=== PATIENT | female | born 1990 | race Caucasian/White ===

== ENCOUNTER 2024-08-17 14:32 | Emergency (ER) | payer OTHER, SELFPAY ==
[2024-08-17] VITALS (7 sets, daily range): BP systolic 112–122; BP diastolic 53–80; PULSE 73–97; RESP 18–20; TEMP 36.7–36.9; O2SAT 98–100; BMI 31.9
--- NOTE | ~2024-08-17 | CT_ITS ---
CLINICAL HISTORY: right side weakness and nubness CT head without contrast Comparison: None provided Findings: No intra-axial mass, midline shift, hydrocephalus, or acute hemorrhage. No significant atrophy-like change or white matter disease. The visualized paranasal sinuses and mastoid air cells are normal. The orbits are within normal limits. No skull fracture. IMPRESSION: 1. No acute intracranial findings. This document has been electronically signed by: rJ Montano MD on 08/17/2024 20:57:56
--- NOTE | ~2024-08-17 | MR_ITS ---
CLINICAL HISTORY: right side numbness MR Brain without gadolinium Comparison: CT head 08/17/2024 Findings: No restricted diffusion. No intra-axial mass or hemorrhage. No midline shift. No hydrocephalus. Vascular flow voids are intact. Orbital contents are unremarkable. The sinuses and mastoid air cells are clear. No focal bone lesion. IMPRESSION: Unremarkable brain MRI. This document has been electronically signed by: Jr Montano MD on 08/17/2024 21:01:01
--- NOTE | 2024-08-17 07:18 | ECG_ITS ---
Test Reason : repeat Blood Pressure : */* mmHG Vent. Rate : 83 BPM Atrial Rate : 83 BPM P-R Int : 146 ms QRS Dur : 88 ms QT Int : 364 ms P-R-T Axes : 58 66 10 degrees QTcB Int : 427 ms Normal sinus rhythm with sinus arrhythmia Possible Left atrial enlargement Borderline ECG When compared with ECG of 17-Aug-2024 16:19, Nonspecific T wave abnormality no longer evident in Anterolateral leads Referred By: Su Martinez Electronically Signed By: SELWYN ZAPIEN
--- NOTE | 2024-08-17 15:34 | ED.GENADULT ---
HPI - General Adult General Chief complaint: General Medical Stated complaint: NUMBNESS R LEG Time Seen by Provider: 08/17/24 18:29 Source: patient and family (Spouse) Mode of arrival: ambulatory Limitations: no limitations History of Present Illness ED Provider: DR. Rapp HPI narrative: 34-year-old female came in for evaluation of right side started after taking rgey-bzn-ssqyfsu Tylenol combined with Motrin for migraine that patient felt in the morning, shortly after patient started to have right side numbness that triggered the patient's anxiety patient started to cry and become anxious, patient came in for further evaluation the numbness while patient waiting to be seen her symptoms resolved, declined using any hormonal replacement therapy, no contraceptive pills. No history of stroke or family history of stroke. No history of high blood pressure or diabetes. Related Data Allergies Allergy/AdvReac Type Severity Reaction Status Date / Time sulfamethoxazole (From Allergy Unknown RASH Verified 08/17/24 15:35 BACTRIM) trimethoprim (From BACTRIM) Allergy Unknown RASH Verified 08/17/24 15:35 Review of Systems Review of Systems: All other systems are reviewed and are negative Constitutional: Reports as per HPI and Reports no additional constitutional complaints Eyes: Reports as per HPI and Reports no additional eye complaints Reports system reviewed and no additional complaints, except as documented Cardiovascular: Reports as per HPI and Reports no additional cardiovascular complaints Respiratory: Reports as per HPI and Reports no additional respiratory complaints Gastrointestinal: Reports as per HPI and Reports no additional gastrointestinal complaints Genitourinary: Reports no additional female genitourinary complaints Musculoskeletal: Reports no additional musculoskeletal complaints Skin/Breast: Reports system reviewed and no additional complaints, except as docu Psychiatric: Reports no additional psychiatric complaints Endocrine: Reports no additional endocrine complaints Hematologic/Lymphatic: Reports no additional hematologic/lymphatic complaints Allergic/Immunologic: Reports no additional allergic/immunologic complaints Reports system reviewed and no additional complaints, except as documented and Reports Abnormal speech present [facility] Social History Social History Alcohol intake: never Smoked in Last 30 Days: No Substance Use Type: Marijuana Substance Use Frequency: Occasionally Advance Directives: No Advance Directives Information Provided: No Physical Exam ED Vital Signs: Vital Signs - 24 hr 08/17/24 15:33 08/17/24 17:55 08/17/24 17:56 Temperature 98.4 F Pulse Rate 75 83 73 Respiratory Rate 18 Blood Pressure 112/53 L 118/68 121/65 Pulse Oximetry 100 Oxygen Delivery Method Room Air 08/17/24 17:57 08/17/24 17:58 Temperature 98.1 F Pulse Rate 83 Respiratory Rate Blood Pressure 122/70 Pulse Oximetry 98 Oxygen Delivery Method Room Air BMI result Body Mass Index 31.9 Vital signs have been reviewed and appear to be correct. Blood pressure elevated. Heart rate normal. Respiratory rate normal. Temperature normal. Oxygen saturation normal. Appearance: Alert. Oriented X3. No acute distress. Head: Normal external exam. Normocephalic. Atraumatic. No Jessica signs noted. No raccoon eyes noted Eyes: PERRLA. EOMI. Conjunctiva and sclera normal. Eyelids normal. ENT: TM's Normal. Pharynx normal. Uvula midline. Moist mucous membranes. No trismus noted. No drooling noted. No muffled voice noted. Neck: Normal inspection. Neck supple. FROM. No adenopathy. Thyroid Normal. No meningeal signs. No neck mass noted. CVS: Normal heart rate and rhythm. Heart sound normal. No murmurs noted. Pulses normal throughout. Respiratory: No respiratory distress. Painless inspiration. Breath sounds normal. No wheezes/rales/rhonchi noted. Chest nontender. No accessory muscle usage noted or decreased air movement noted. Abdomen: Soft and nontender. Bowel sounds normal in all 4 quadrants. No distention noted. No organomegaly noted. No visible injury noted. Back: No CVA tenderness. Full range of motion noted. Skin: Skin warm and dry. Normal skin color. Normal skin turgor. No rashes/lesions/lacerations noted. Extremities: No lower extremity edema. Extremities exhibit normal range of motion. Extremities nontender. Neuro: Mental status: Normal attention, orientation, memory, and affect. Cranial nerves: Pupils are equal, round and reactive to light, EOMI, visual amador are fall, face is symmetric, facial sensations are normal. Motor examination normal muscle tone, strength to 4 extremities. DTR are +2, planter's are flexor. Sensory exam; normal coordination, no ataxia, gait stable. Cerebellar exam: Hbcbej-yk-bbjk and bvlw-bn-xyqp is normal. Extrapyramidal system: No tremors, no rigidity with normal facial expressions. Pronator drift not present NIH Stroke Scale Time: 18:42 Level of Consciousness: Alert Level of Consciousness Questions: Answers both questions correctly Level of Consciousness Commands: Performs both tasks correctly Best Gaze: Normal Visual: No visual loss Facial Palsy: Normal Motor Arm (Right): No drift Motor Arm (Left): No drift Motor Leg (Right): No drift Motor Leg (Left): No drift Limb Ataxia: Absent Sensory: Normal Best Language: No aphasia Dysarthia: Normal Extinction and Inattention: No abnormality Score: 0 Course Course Course Narrative: This is an RME: Additional HPI, ROS, PE not included below will be deferred to primary provider. RME assessment and note performed by: Su Martinez PA-C This is a 78-cpei-bas-female who presents to the ER with does report some tingling a complaint of numbness/tingling in her right arm and right leg after taking a tylenol/motrin combination tablet. Has taken this before, and did wake up with similar symptoms. Was taking this tablet for migraine. Patient becomes tearful, stating that she is not feeling well in triage. States she is just feeling off. She is neurologically intact. Plan: EKG, labs, further ER evaluation needed. Reevaluation(s) Reevaluation #1: 34-year-old female came in for evaluation after having right-sided body numbness after taking Tylenol combined with Motrin patient was instructed to avoid taking this medicine again, repeat neuro exam is within normal. Both CT/MRI of the brain are unremarkable for acute pathology will reassure the patient and discharge to follow-up with PCP. Time: 20:41 Medications Administered Discontinued Medications Generic Name Dose Route Start Last Admin Trade Name Rejiq PRN Reason Stop Dose Admin Diazepam 2 mg 08/17/24 19:14 08/17/24 19:32 Diazepam 2 Mg Tablet PO 08/17/24 19:15 2 mg ONCE ONE Administration Medical Decision Making Differential Diagnosis Differential Diagnoses: The differential diagnosis associated with the presentation includes (Hemorrhagic stroke, ischemic stroke, a reaction to medication, electrolyte derangement, severe anemia, anxiety.) Admission/Observation Consideration of admission/observation: Escalation of care including admission/observation considered Lab Data MDM Lab Attestation statement: I reviewed the patient's lab results. 08/17/24 16:29 08/17/24 16:29 Labs: Lab Results 08/17/24 Range/Units 16:29 WBC 9.4 (4.8-10.8) X10*3/uL RBC 4.49 (4.20-5.50) X10*6/uL Hgb 13.0 (12.0-16.0) g/dl Hct 38.7 (37.0-47.0) % MCV 86.2 (80.0-98.0) fL MCH 29.0 (27.0-33.0) pg MCHC 33.6 (31.0-35.0) g/dl RDW 12.8 (11.0-16.0) % Plt Count 234 (160-400) X10*3/uL MPV 10.0 (9.4-12.3) fL Immature Gran % (Auto) 0.2 (0.0-0.4) % Neut % (Auto) 80.0 H (45-73) % Lymph % (Auto) 13.6 L (20-40) % Pima % (Auto) 5.3 (2-11) % Eos % (Auto) 0.4 (0-4) % Baso % (Auto) 0.5 (0-2) % Lymph # (Auto) 1.3 (1.2-4.9) X10*3/uL Pima # (Auto) 0.5 (0.1-1.2) X10*3/uL Eos # (Auto) 0.0 (0.0-0.4) X10*3/uL Baso # (Auto) 0.1 (0.0-0.2) X10*3/uL Abs Immat Gran (auto) 0.02 (0.00-0.03) X10*3/uL Absolute Neuts (auto) 7.5 (2.0-8.3) x10*3/uL Absolute Nucleated RBC 0.000 (0.0-0.012) X10*3/uL Nucleated RBC % (auto) 0.0 (0.0-0.2) /100WBC Sodium 140 (135-145) mmol/L Potassium 3.7 (3.3-5.1) mmol/L Chloride 108 (96-108) mmol/L Carbon Dioxide 24 (22-29) mmol/L Anion Gap 12 (12-20) BUN 14 (9-16) mg/dL Creatinine 0.65 (0.5-1.4) mg/dL Estim Creat Clear Calc 134.1 Estimated GFR > 60 Random Glucose 101 (60-115) mg/dL Calcium 9.6 (8.4-10.2) mg/dL Magnesium 2.0 (1.6-2.6) mg/dL Total Bilirubin 0.4 (0.0-1.0) mg/dL Direct Bilirubin 0.1 (0.0-0.5) mg/dL AST 20 (5-31) U/L ALT 9 (0-31) U/L Alkaline Phosphatase 65 (39-117) U/L Troponin I High Sens < 2.7 (<3.5-17.0) ng/L Total Protein 7.5 (6.5-8.0) g/dL Albumin 4.9 (3.5-5.0) g/dL Beta HCG, Quant < 2 mIU/mL Influenza Type A (PCR) NEGATIVE (Negative) Influenza Type B (PCR) NEGATIVE (Negative) RSV RNA Qual (PCR) NEGATIVE (Negative) SARS-CoV-2 RNA (RT-PCR) NEGATIVE (Negative) Independent Interpretation I performed an independent interpretation of an: CT Scan (Head: No acute intra cranial pathology.) and MRI (Head: No acute intracranial pathology.) Radiology Impression Discussion of test interpretation with radiology: I have reviewed the radiologist's reading. Discharge Plan Discharge Clinical Impression: Anxiety, Medication side effect Patient Disposition: Home, Self-Care Instructions: Anxiety (ED) Additional Instructions: Avoid taking Tylenol combined with Motrin Referrals: Joanna Stanley MD [Primary Care Provider, Medical] Print Language: Congolese
--- NOTE | 2024-08-17 15:36 | ECG_ITS ---
Test Reason : numbness Blood Pressure : */* mmHG Vent. Rate : 80 BPM Atrial Rate : 80 BPM P-R Int : 140 ms QRS Dur : 88 ms QT Int : 364 ms P-R-T Axes : 57 59 -1 degrees QTcB Int : 419 ms Normal sinus rhythm with sinus arrhythmia Possible Left atrial enlargement Nonspecific T wave abnormality Abnormal ECG When compared with ECG of 24-Nov-2008 08:03, Nonspecific ST and T wave abnormality Present Referred By: Su Martinez Electronically Signed By: SELWYN ZAPIEN
--- NOTE | 2024-08-17 15:38 | PC.NURSE ---
iv removed. pt likely to leave. denies headache.
[2024-08-17 16:38] LABS: MANUAL DIFF FLAG NO
[2024-08-17 16:46] LABS: Basophils Absolute Auto 0.1 X10*3/uL (0.0-0.2); Basophils Percent Auto 0.5 % (0-2); Eosinophils Percent Auto 0.4 % (0-4); Hematocrit 38.7 % (37.0-47.0); Imm Gran Abs Auto 0.02 X10*3/uL (0.00-0.03); Imm Gran Pct Auto 0.2 % (0.0-0.4); Lymphocytes Absolute Auto 1.3 X10*3/uL (1.2-4.9); Lymphocytes Percent Auto 13.6 % (20-40); Mean Corpuscular HGB Conc 33.6 g/dl (31.0-35.0); Mean Corpuscular Volume 86.2 fL (80.0-98.0); Monocytes Absolute Auto 0.5 X10*3/uL (0.1-1.2); Monocytes Percent Auto 5.3 % (2-11); Neutrophils Absolute Auto 7.5 x10*3/uL (2.0-8.3); Platelet Count 234 X10*3/uL (160-400); Red Blood Count 4.49 X10*6/uL (4.20-5.50); Red Cell Distribution Width 12.8 % (11.0-16.0); White Blood Count 9.4 X10*3/uL (4.8-10.8)
[2024-08-17 17:02] LABS: Alanine Aminotransferase 9 U/L (0-31); Albumin Level 4.9 g/dL (3.5-5.0); Alkaline Phosphatase 65 U/L (39-117); Anion Gap 12 (12-20); Aspartate Amino Transferase 20 U/L (5-31); Bilirubin Direct 0.1 mg/dL (0.0-0.5); Bilirubin Total 0.4 mg/dL (0.0-1.0); Blood Urea Nitrogen 14 mg/dL (9-16); Calcium 9.6 mg/dL (8.4-10.2); Carbon Dioxide 24 mmol/L (22-29); Chloride 108 mmol/L (96-108); Creatinine Clr Calc Pharmacy 134.1; Estimated Glomerular Filt Rate > 60; Glucose Random 101 mg/dL (60-115); Potassium 3.7 mmol/L (3.3-5.1); Sodium 140 mmol/L (135-145); Total Protein 7.5 g/dL (6.5-8.0)
[2024-08-17 17:03] LABS: Troponin-I High Sensitivity < 2.7 ng/L (<3.5-17.0)
[2024-08-17 17:04] LABS: HCG Quantitative < 2 mIU/mL
[2024-08-17 17:23] LABS: Influenza A PCR NEGATIVE (Negative); Influenza B PCR NEGATIVE (Negative); Resp Syncy Virus RNA Qual PCR NEGATIVE (Negative); SARS COV2 PCR INHOUSE NEGATIVE (Negative)
--- OUTSIDE RECORDS SUMMARY | 2024-08-17 18:12 | XMS_ITS | Data Portability ---
Author Organization KAEL Mclean [facility] Address [address] [place] [address] Assessment No assessment recorded. Plan of Treatment Reminders Order Date Submit Date Provider Last Modified By Organization Details Last Modified Time Details Appointments None recorded. Lab rapid strep group A, throat 2022 023 [email or web address] _[facility], [address] [place] [address], [phone], 3 08:47:06 streptococc us group A, culture, throat 2022 023 [facility], [address] [place] [address], [place], [address], 3 10:06:22 rapid SARS CoV 2 Ag, QL IA, respiratory specimen 2022 023 [facility] _[facility], [address] [place] [address], [phone], 3 08:47:06 rapid strep group A, throat 2021 022 [email or web address] 1 _[facility], [address] [place] [address], [phone], 2 08:53:56 Referral None recorded. Procedures None recorded. Surgeries None recorded. Imaging None recorded. Medication Orders amoxicillin 875 mg tablet 2022 023 [facility]armacy #[id number], [address] [place], [address], 3 08:47:08 Allergy Relief (fluticason e) 50 mcg/actuati on nasal spray,suspe nsion 2022 023 [facility]/Pharmacy #[id number], [address] [facility], [place], [address], 3 08:47:08 Patient TargetsNo targets recorded. Patient Instructions Encounter Date Encounter Id Patient Instructions Last Modified By Organization Details Last Modified Time 02/07/2022 [id number] viral respirator y infection: care instructions Not available 02/07/2022 08:53:56 05/25/2022 [id number] Use over the counter medications for your sore throat. Basic lozenges (cough drops) or lozenges with an anesthetic (numbing agent) can be used as needed for quick results; look for the active ingredient, benzocaine, for numbing lozenges (like Cepacol Extra or Chloraseptic Max). Gargling with warm salt water can also relieve pain. Dissolve 1/4 to 1/2 teaspoon in 8-ounces of warm water; gargle and spit salt solution every hour, as needed. Sore throat pain can also be reduced by taking regular doses of acetaminophen (tylenol) or ibuprofen (Advil); if you are given a prescription of PREDNISONE, you may continue to take acetaminophen, but do not take ibuprofen or naprosyn. While this isn't quick, it can significantly reduce pain within an hour after taking. Please switch toothbrush after being on antibiotic for 24 hrs. You should follow-up with your PCP in days, or at any time if your condition does not improve or worsens. Any acute change should prompt a visit to the nearest Emergency Department. . [email or web address] Not available 05/25/2022 08:45:44 If you test positive for COVID-19, stay home for at least 5 days and isolate from others in your home. You are likely most infectious during these first 5 days. Wear a high-quality mask if you must be around others at home and in public. Do not go places where you are unable to wear a mask. For travel guidance, see CDC s Travel webpage. Do not travel. Stay home and separate from others as much as possible. Use a separate bathroom, if possible. Take steps to improve ventilation at home, if possible. Don t share personal household items, like cups, towels, and utensils. Monitor your symptoms. If you have an emergency warning sign (like trouble breathing), seek emergency medical care immediately. If you had symptoms and: Your symptoms are improving You may end isolation after day 5 if: You are fever-free for 24 hours (without the use of fever-reducing medication). Your symptoms are not improving Continue to isolate until: You are fever-free for 24 hours (without the use of fever-reducing medication). Your symptoms are improving. Regardless of when you end isolation Until at least day 11: Avoid being around people who are more likely to get very sick from COVID-19. Remember to wear a high-quality mask when indoors around others at home and in public. Do not go places where you are unable to wear a mask until you are able to discontinue masking (see below). For travel guidance, see [facility] s Travel webpage. [email or web address] Not available 05/25/2022 08:38:08 Reason for Referral None Reported. Results Created Date Observation Date Name Description Value Unit Range Abnormal Flag Note LastModifiedBy Organization Detail LastModifiedTime 02/08/20 22 02/07/2022 rapid strep group A, throa t Unknown Analyte Normal = Negati ve Not Available [facility] [address] [place], [address], 02/07/2022 08:27:56 02/08/20 22 02/07/2022 rapid strep group A, throa t Unknown Analyte negati ve Not Available [facility] [address] [place], [address], 02/07/2022 08:27:56 05/26/19 23 05/28/2022 BETA STREP GP A CULTU RE beta strep gp A culture NEGATI VE Refer ence Range : Negat edgard Not Available [facility] ([facility]) [address] [facility], [place], [address], 05/28/2022 10:06:22 05/26/19 23 05/25/2022 rapid SARS CoV 2 Ag, QL IA, respi rator y speci men Unknown Analyte Normal =Negat edgard Not Available [address] [place] [address], [phone], 05/25/2022 08:18:44 05/26/19 23 05/25/2022 rapid SARS CoV 2 Ag, QL IA, respi rator y speci men Unknown Analyte negati ve Not Available [address] [place] [address], [address], 05/25/2022 08:18:44 05/26/19 23 05/25/2022 rapid strep group A, throa t Unknown Analyte Normal = Negati ve Not Available [address] [place] [address], [address], 05/25/2022 08:18:52 05/26/1905/25/2022 rapid strep group A, throa t Unknown Analyte negati ve Not Available [address] [place] [address], [phone], 05/25/2022 08:18:52 Result Notes None recorded. Problems Name Problem SNOMED Code Status Onset Date Resolution Date Notes Provider Name and Address Organization Details Recorded Time No current problems or disabilit y 842832165 Active [facility] 3 08:16:41 [id number] Completed 202105/25/2022 Removal Reason: Gave 9 in april 2022 K[facility]EL [facility] 3 08:16:37 Problem Notes None recorded. Medical Equipment None Reported. Allergies Allergen ID Allergen Name Allergen Category Reaction Reaction Severity Criticality Documentation Date Start Date Code Code System Note Provider Name and Address Organization Details Recorded Time 47705 Bactrim medicatio n Not available Not available Not available 02/07/2022 65783 9 RxNorm THELMA martinez PA Tereza [facility] 2 08:29:15 Medications Name Sig Start Date Stop Date Status Note LastModified by Organization Details LastModified Time amoxicillin 875 mg tablet Take 1 tablet every 12 hours by oral route with meals for 10 days. 2022 active Not Available Not Available Not Avai lable fluticasone propionate 50 mcg/actuati on nasal spray,suspe nsion SPRAY 1 SPRAY BY INTRANASA L ROUTE EVERY DAY DIRECTED FOR 30 DAYS active Not Available Not Available No t Available Tylenol active Not Available Not Avail able Not Available + DHA 05/25 completed Not Available Not Available Not Available Vitals Date Recorded Body height Body mass index (BMI) Body weight Body temperature Oxygen saturation Oxygen saturation in Arterial blood by Pulse oximetry Heart rate Respiratory rate Systolic blood pressure Diastolic blood pressure Provider Name and Address Organization Details Last Updated DateTime 3 165.1 cm 32.4 kg/m2 87463.5 1 g 97.6 [degF] 96 % 96 % 87 /min 18 /min 104 mm[Hg] 71 mm[Hg] MICHAEL SCRUGGS - [facility] 3 08:18:20 Date Recorded Body height Body mass index (BMI) Body weight Heart rate Oxygen saturation Oxygen saturation in Arterial blood by Pulse oximetry Respiratory rate Systolic blood pressure Diastolic blood pressure Provider Name and Address Organization Details Last Updated DateTime 2 165.1 cm 32.4 kg/m2 31768.5 1 g 98 /min 97 % 97 % 18 /min 122 mm[Hg] 75 mm[Hg] THELMA Starks [facility] 2 08:30:15 Social History Question Answer Notes LastModified by Organizat ion Details LastModified Time Tobacco Smoking Status Never Smoker KAEL Parker [facility] 02/07/2022 08:29:47 What Is The Highest Grade Or Level Of School You Have Completed Or The Highest Degree You Have Received? [id number] [email or web address] Information not available 02/07/2022 What Is Your Water Source? [place] [address] Information not available 02/07/2022 What Is Your Heat Source? Electric Information not available 02/07/2022 Have You Had Direct Contact, Or Contact During Intimacy, With Monkeypox Rash, Scabs, Or Body Fluids From A Person With Monkeypox? No Information not available 02/07/2022 What Is Your Relationship Status? Unknown Information not available 02/07/2022 Have You Recently Traveled Abroad? No lela Information no t available 02/07/2022 Are You Currently In School? No Information not available 02/07/2022 Sex: Unknown Functional Status Question Answer Note LastModified by Organizat ion Details LastModified Time Do you use any illicit or recreational drugs? No Information not available 02/07/2022 Do you or have you ever used any other forms of tobacco or nicotine? No Information not available 02/07/2022 What is your level of alcohol consumption? None [email or web address] Information not available 02/07/2022 Are you currently employed? No Information not available 02/07/2022 Mental Status None recorded. Family History Relationship Description Onset Age of this Age Resolved Age Notes LastModified by Organization Details LastModified Time Father No current problems or disability [email or web address] Not available 02/07/2022 08:29:40 Mother No current problems or disability [email or web address] Not available 02/07/2022 08:29:40 Medical History No medical history recorded. Gynecological HistoryNo gynecological history recorded. Obstetrics History GPAL:G 0 P 0 0 0 0 Immunizations Vaccine Type Date Status Note Provider Nam e and Address Organization Details Recorded Time COVID-19, mRNA, LNP-S, PF, 30 mcg/0.3 mL dose 10/28/2020 completed THELMA martinez PA - [facility] 02/07/2022 08:28:25 COVID-19, mRNA, LNP-S, PF, 30 mcg/0.3 mL dose 10/07/2020 completed THELMA IYER CALDWELL null, PA - [facility] 02/07/2022 08:28:25 Tdap 10/13/2019 completed THELMA CALDWELL null, PA - [facility] 02/07/2022 08:28:25 Influenza, split virus, quadrivalent, PF 11/08/2019 completed THELMA CALDWELL null, PA - [facility] 02/07/2022 08:28:25 COVID-19, mRNA, LNP-S, PF, 30 mcg/0.3 mL dose 11/16/2020 completed THELMA CALDWELL null, PA - [facility] 02/07/2022 08:28:25 Past Encounters Encounter ID Performer Location Encounter Start Date Encounter Closed Date Diagnosis/Indication Diagnosis SNOMED-CT Code Diagnosis ICD10 Code Diagnosis Note [id number] [address] [address] [address] 08/20/2021 08:20:45 08/20/2021 09:38:54 [id number] HELGA BEDOYA MD [address] [address] [address] 02/07/2022 08:09:37 02/07/2022 08:55:32 Viral upper respiratory tract infection 001365988 J06.9 As we discussed you can useFLONASE 1 SPRAY IN EACH SIDE TWICE A DAYto help with your symptoms. If your symptoms worsen or persist you should be re-evaluat ed. Return to [facility] or see your primary care physician if your symptoms fail to improve in 5-7 days. You should follow up sooner if your symptoms worsen significan tly or if you develop new symptoms that concern you. Drink plenty of fluids Sore throat 280747755 J0 2.9 [id number] Marcellus Cameron NP [address] [address] [place] [phone] 05/25/2022 08:02:37 05/25/2022 08:52:43 Exposure to SARS-CoV-2 304479964 Z20.822 Streptococ alison sore throat 67227792 J02.0 Health Concerns Section Related Observation LastModified by Organization Detai ls LastModified Time None Recorded Concern Status LastModified by Organization Details LastModified Time None Recorded Advance Directives Directive None Recorded Payers Insurance Date Sequence Insurance Name Policy Number Policy Scott Covered Member ID Scott Member ID Guarantor Name 02/07/2022 1 [place] [id number] Lamine Tolentino [id number] Jessica Tolentino 05/25/2022 1 [facility] Jessica Tolentino [id number] Jessica Tolentino Notes Date Note Type Note Provider Name and Address Organization Details Recorded Time 02/07/2022 text/html Sore throatRepor hernando bypatient.Location:[facility] at Severity:moderate Quality:achy Onset/Timin weeks Associated Symptoms:no shortness of breath; no wheezing; no sinus pain; no vomiting; no nausea;sore throat;coughing Modifying Factors:25 wks started a week ago with ST, worse in the mornings, ear pressure. Has started with dry cough. Is . HELGA BEDOYA MD [address] [place], [address], [place] - [facility] 02/07/2022 08:54:58 05/25/2022 text/html CongestionReport ed bypatient.Associated Symptoms:no shortness of breath; no chest pain/discomfort; no fever; no cough; no night sweats; no wheezing; no sputum production; no lightheadedness; no hoarsenessNotes:sore throat, nasal congestion with post nasal drip x 4 days. denies any fever or fever with chills. no SOB or respiratory distress. Marcellus Cameron NP [address] [place], [address], [place] [employer] [facility] 05/25/2022 08:49:04 OBGyn Episode No OBEpisode recorded.
--- NOTE | 2024-08-17 19:11 | PC.NURSE ---
report from Prisca MEDINA Patient awake and alert. skin pwd, resp even and non labored. speaking in full, clear sentences. reports numbness/tingling to both hands. neuros intact/PERRLA. c/o 3/10 head pressure. also reports feeling anxious and is requesting medication to help relax her. Patient to CT at this time, ambulatory with steady gait
[2024-08-17] MEDS: diazePAM 2 MG TABLET PO (19:32)
--- NOTE | 2024-08-17 20:09 | PC.NURSE ---
Pt to MRI
== END 2024-08-17 21:33 | disposition home or self-care (01) ==
PROVIDERS: Physician Assistant Medical; Emergency Provider Emergency Medicine; PCP Family Medicine
DX: R20.0 Anesthesia of skin (principal); F41.9 Anxiety disorder, unspecified; R10.2 Pelvic and perineal pain; I49.8 Other specified cardiac arrhythmias; R94.31 Abnormal electrocardiogram [ECG] [EKG]; Z79.899 Other long term (current) drug therapy; Z03.818 Encounter for observation for suspected exposure to other biological agents ruled out
CPT/HCPCS: 0241U; 70450; 70551; 80048; 80076; 83735; 84484; 84702; 85025; 93005; 99284; 99285

== ENCOUNTER → 2024-08-17 15:36 | Outpatient (BNV) | payer OTHER, SELFPAY | PROVIDERS: Emergency Provider Emergency Medicine; PCP Family Medicine; Visit Provider Internal Medicine | DX: Z13.6 Encounter for screening for cardiovascular disorders (principal); R94.31 Abnormal electrocardiogram [ECG] [EKG]; R20.2 Paresthesia of skin | CPT/HCPCS: 93010 ==

== ENCOUNTER → 2024-08-17 18:36 | Outpatient (BNV) | payer OTHER, SELFPAY | PROVIDERS: Emergency Provider Emergency Medicine; PCP Family Medicine; Visit Provider Radiology Diagnostic Radiology | DX: R20.2 Paresthesia of skin (principal); R53.1 Weakness | CPT/HCPCS: 70450; 70551 ==

== ENCOUNTER 2024-08-31 08:02 | Outpatient (AMB) | payer OTHER, SELFPAY ==
--- OUTSIDE RECORDS SUMMARY | 2024-08-31 08:06 | XMS_ITS | Data Portability ---
Author Organization [facility] Address [address] [place] [address] Assessment No assessment recorded. Plan of Treatment Reminders Order Date Submit Date Provider Last Modified By Organization Details Last Modified Time Details Appointments None recorded. Lab rapid strep group A, throat 2022 023 [email or web address] [facility], [address] [place] [address], [phone], 3 08:47:06 streptococc us group A, culture, throat 2022 023 [facility], [address] [place] [address], [place], [address], 3 10:06:22 rapid SARS CoV 2 Ag, QL IA, respiratory specimen 2022 023 [facility], [address] [place] [address], [phone], 3 08:47:06 rapid strep group A, throat 2021 022 [email or web address] 1 _[facility], [address] [place] [address], [phone], 2 08:53:56 Referral None recorded. Procedures None recorded. Surgeries None recorded. Imaging None recorded. Medication Orders amoxicillin 875 mg tablet 2022 023 [facility] #[id number], [address] [place], [address], 3 08:47:08 Allergy Relief (fluticason e) 50 mcg/actuati on nasal spray,suspe nsion 2022 023 [facility] #[id number], [address] [facility], [place], [address], 3 08:47:08 Patient TargetsNo targets recorded. Patient Instructions Encounter Date Encounter Id Patient Instructions Last Modified By Organization Details Last Modified Time 02/07/2022 [id number] viral respirator y infection: care instructions [email or web address] Not available 02/07/2022 08:53:56 05/25/2022 [id number] Use over the counter medications for your [...] masking (see below). For travel guidance, see [facility] Travel webpage. [email or web address] Not available 05/25/2022 08:38:08 Reason for Referral None Reported. Results Created Date Observation Date Name Description Value Unit Range Abnormal Flag Note LastModifiedBy Organization Detail LastModifiedTime 02/08/20 22 02/07/2022 rapid strep group A, throa t Unknown Analyte Normal = Negati ve Not Available [facility] [address] [place], [address], 02/07/2022 08:27:56 02/08/20 22 02/07/2022 rapid strep group A, throa t Unknown Analyte negati ve Not Available [facility] [address] [place], [address], 02/07/2022 08:27:56 05/26/19 23 05/28/2022 BETA STREP GP A CULTU RE beta strep gp A culture NEGATI VE Refer ence Range : Negat edgard Not Available [facility] ([facility]) [address] [facility], [place], [address], 05/28/2022 10:06:22 05/26/19 23 05/25/2022 rapid SARS CoV 2 Ag, QL IA, respi rator y speci men Unknown Analyte Normal =Negat edgard Not Available [address] [place] [address], [address], 05/25/2022 08:18:44 05/26/19 23 05/25/2022 rapid SARS CoV 2 Ag, QL IA, respi rator y speci men Unknown Analyte negati ve Not Available [address] [place] [address], [address], 05/25/2022 08:18:44 05/26/19 23 05/25/2022 rapid strep group A, throa t Unknown Analyte Normal = Negati ve Not Available [address] [place] [address], [phone], 05/25/2022 08:18:52 05/26/1905/25/2022 rapid strep group A, throa t Unknown Analyte negati ve Not Available [address] [place] [address], [phone], 05/25/2022 08:18:52 Result Notes None recorded. Problems Name Problem SNOMED Code Status Onset Date Resolution Date Notes Provider Name and Address Organization Details Recorded Time No current problems or disabilit y [id number] Active [facility] 3 08:16:41 [id number] Completed 202105/25/2022 Removal Reason: Gave 9 in april 2022 [facility] 3 08:16:37 Problem Notes None recorded. Medical Equipment None Reported. Allergies Allergen ID Allergen Name Allergen Category Reaction Reaction Severity Criticality Documentation Date Start Date Code Code System Note Provider Name and Address Organization Details Recorded Time 04329 Bactrim medicatio n Not available Not available Not available 02/07/2022 28799 9 RxNorm THELMA martinez PA - [facility] 2 08:29:15 Medications Name Sig [...] Pulse oximetry Heart rate Respiratory rate Systolic And Diastolic Provider Name and Address Organization Details Last Updated DateTime 3 165.1 cm 32.4 kg/m2 69155.5 1 g 97.6 [degF] 96 % 96 % 87 /min 18 /min 104/71 mm[Hg] MICHAEL CRUZ PA - [facility] 3 08:18:20 Date Recorded Body height Body mass index (BMI) Body weight Heart rate Oxygen saturation Oxygen saturation in Arterial blood by Pulse oximetry Respiratory rate Systolic And Diastolic Provider Name and Address Organization Details Last Updated DateTime 2 165.1 cm 32.4 kg/m2 44987.5 1 g 98 /min 97 % 97 % 18 /min 122/75 mm[Hg] THELMA CALDWELL PA - [facility] 2 08:30:15 Social History Question Answer Notes LastModified by Organizat ion Details LastModified Time Tobacco Smoking Status Never Smoker THELMA martinez PA Tereza [facility] 02/07/2022 08:29:47 What Is The Highest Grade Or Level Of School You Have Completed Or The Highest Degree You Have Received? DM95301-9 [email or web address] Information not available 02/07/2022 What Is Your Water Source? [facility] [email or web address] Information not available 02/07/2022 What Is Your Heat Source? Electric Information not available 02/07/2022 Have You Had Direct Contact, Or Contact During Intimacy, With Monkeypox Rash, Scabs, Or Body Fluids From A Person With Monkeypox? No Information not available 02/07/2022 What Is Your Relationship Status? Unknown [email or web address] Information not available 02/07/2022 Have You Recently Traveled Abroad? No [email or web address] Information no t available 02/07/2022 Are You Currently In School? No [email or web address] Information not available 02/07/2022 Sex: Unknown Functional Status Question Answer Note LastModified by Organizat ion Details LastModified Time Do you use any illicit or recreational drugs? No [email or web address] Information not available 02/07/2022 Do you or have you ever used any other forms of tobacco or nicotine? No elizabetzlyndsayqueoliva Information not available 02/07/2022 What is your level of alcohol consumption? None [email or web address] Information not available 02/07/2022 Are you currently employed? No elizabetzcharleen Information not available 02/07/2022 Mental Status None recorded. Family History Relationship Description Onset Age of this Age Resolved Age Notes LastModified by Organization Details LastModified Time Father No current problems or disability [email or web address] Not available 02/07/2022 08:29:40 Mother No current problems or disability [email or web address] Not available 02/07/2022 08:29:40 Medical History No medical history recorded. Gynecological HistoryNo gynecological history recorded. Obstetrics History GPAL:G 0 P 0 0 0 0 Immunizations Vaccine Type Date Status Note Provider Nam e and Address Organization Details Recorded Time COVID-19, mRNA, LNP-S, PF, 30 mcg/0.3 mL dose 10/28/2020 completed THELMA CALDWELL null, PA - [facility] 02/07/2022 08:28:25 COVID-19, mRNA, LNP-S, PF, 30 mcg/0.3 mL dose 10/07/2020 completed THELMA CALDWELL null, [facility] - [facility] [...] SNOMED-CT Code Diagnosis ICD10 Code Diagnosis Note [id number] [address] [address] [address] 08/20/2021 08:20:45 08/20/2021 09:38:54 [id number] HELGA BEDOYA MD [address] [address] [place] [phone] 02/07/2022 08:09:37 02/07/2022 08:55:32 Viral upper respiratory tract infection 719593326 J06.9 As we discussed you can useFLONASE [...] you. Drink plenty of fluids Sore throat 369287539 J0 2.9 [id number] Marcellus Cameron [place] [address] [address] [place] [phone] 05/25/2022 08:02:37 05/25/2022 08:52:43 Exposure to SARS-CoV-2 779136420 Z20.822 Streptococ alison sore throat 47641862 J02.0 Health Concerns Section Related Observation LastModified by Organization Detai ls LastModified Time None Recorded Concern Status LastModified by Organization Details LastModified Time None Recorded Advance Directives Directive None Recorded Payers Insurance Date Sequence Insurance Name Policy Number Policy Scott Covered Member ID Scott Member ID Guarantor Name 02/07/2022 1 [place] [id number] Lamine Tolentino [id number] Jessica Tolentino 05/25/2022 1 [facility] Jessica Tolentino [id number] Jessica Tolentino Notes Date Note Type Note Provider Name and Address Organization Details Recorded Time 02/07/2022 text/html Sore throatRepor hernando bypatient.Location:thro at Severity:moderate Quality:achy Onset/Timin weeks Associated Symptoms:no shortness of breath; no wheezing; no sinus pain; no vomiting; no nausea;sore throat;coughing Modifying Factors:25 wks started a week ago with ST, worse in the mornings, ear pressure. Has started with dry cough. Is . HELGA BEDOYA MD [address] [place], [address], [employer] 02/07/2022 08:54:58 05/25/2022 text/html CongestionReport ed bypatient.Associated Symptoms:no shortness of breath; no chest pain/discomfort; no fever; no cough; no night sweats; no wheezing; no sputum production; no lightheadedness; no hoarsenessNotes:sore throat, nasal congestion with post nasal drip x 4 days. denies any fever or fever with chills. no SOB or respiratory distress. Marcellus Cameron NP [address] [facility] [place], [address], [facility] 05/25/2022 08:49:04 OBGyn Episode No OBEpisode recorded.
--- NOTE | 2024-08-31 08:08 | A.OFFVIS_ITS ---
Intake Visit Reasons: Headaches Allergies sulfamethoxazole (From BACTRIM) Allergy (Unknown, Verified 08/17/24 15:35) RASH trimethoprim (From BACTRIM) Allergy (Unknown, Verified 08/17/24 15:35) RASH Medication List - Last Reconciled 08/31/24 by Chana Interiano MD fluconazole 150 mg PO DAILY naratriptan 2.5 mg PO DAILY PRN sumatriptan succinate mg PO HPI Comments Details: 34 years old woman with polycystic ovarian syndrome and migraine without aura. Previously she has managed her headaches with naratriptan or sumatriptan but the se medicines now were causing multiple side-effects. During she did not have to many headaches but now headaches were back. She was having 1-3 headaches in a month. Recent headache took her to emergency room in [facility] when she also had right arm or leg numbness that lasted few days. She had a CAT scan of brain and MRI of brain that were unremarkable. [facility] Medical History (Updated 08/31/24 @ 08:19 by Chana Interiano MD) Obesity PCOS (polycystic ovarian syndrome) Migraine without aura Social History (Updated 08/26/24 @ 17:20 by Yoly Wesley MA) Alcohol intake: never Patient Tobacco Use Status: Never used Tobacco Substance Use Type: Marijuana Review of Systems Const Details: Constitutional:?No fever, chills, fatigue, weight loss, or night sweats. HEENT:?No headache, vision changes, hearing loss, nasal congestion, sore throat. Neurological:?No dizziness, syncope, seizures, numbness, tingling, weakness, tremors, memory loss. Psychiatric:?No anxiety, depression, mood swings, sleep disturbance, or santos llucinations. Endocrine:?No heat/cold intolerance, polydipsia, polyuria, or hair/skin changes. Hematologic/Lymphatic:?No easy bruising, bleeding, or lymphadenopathy. Integumentary (Skin):?No rash, lesions, itching, or color changes. ? Physical Exam Neuro Other: Mental Status: Alert and oriented to person, place, and time. Normal attention. Normal spontaneous speech, fluency, and comprehension. No obvious issues with mood and memory. Affect is appropriate. Cranial Nerves: CN II: Visual amador full to confrontation, visual acuity intact. CN III, IV, : Pupils equal, round, reactive to light and accommodation. Extraocular movements are normal. CN V: Facial sensation is normal. CN VII: Facial movements symmetrical. CN VIII: Hearing intact to bedside conversation is normal. CN IX, X: Palate elevates symmetrically. CN XI: Shoulder shrug and head turn symmetrical. CN XII: Tongue midline without atrophy or fasciculations. Motor: Bulk and tone normal in all extremities. No significant muscle weakness in arms and legs. No drift. Reflexes: Deep tendon reflexes 2+ and symmetric. Plantar response down-going bilaterally. Coordination: Drhuul-uc-hjkl and wrwn-hn-alil testing normal. No dysmetria. Gait and Station: No obvious gait abnormality. No ataxia or instability. Sensory: Intact to light touch, pinprick, and vibration. Romberg is negative. Extrapyramidal: Full facial expressions and blinking. No rigidity. Movements are appropriate with no tremor or abnormality. Speech: Normal; no dysarthria or tremor. Assessment & Plan Assessment & Plan (1) Migraine without aura: Comment: Tried Meds: Topamax, Propranalol, Verapamil. Venlafaxine, Naratriptan, Sumatriptan, fiorecet, Diclofenac, Ajovy (did work) MRI brain [facility] [place] May 2017: WNL. Code(s): G43.009 - Migraine without aura, not intractable, without status migrainosus Category: Medical Qualifiers: Status migrainosus presence: without status migrainosus Intractability: not intractable Qualified Code(s): G43.009 - Migraine without aura, not intractable, without status migrainosus (2) Migraine with aura: Code(s): G43.109 - Migraine with aura, not intractable, without status migrainosus Category: Medical Qualifiers: Status migrainosus presence: without status migrainosus Intractability: not intractable Qualified Code(s): G43.109 - Migraine with aura, not intractable, without status migrainosus Plan She has migraine with and without aura. Her recent headache also resulting in right arm or leg numbness with negative brain imaging, which likely was cause by migraine. She was having multiple side-effects from Triptan and there were also relatively contraindicated because of the type of migraine she started to have. Gocp-olx-uscxscr medicines or nonsteroidal anti-inflammatory agents have also not worked. I would try Nurtec 75 mg as needed. She was not ready to take a medicine regular basis as she was not having too many headaches. Medications: New rimegepant (Nurtec ODT) 75 mg PO Q OTHER DAY PRN 10 tabs 0RF migraine headache 30 days Coding Level of Care Code Est Pt Level 4 (52045) Diagnoses Migraine without aura and without status migrainosus, not intractable G43.009 Status migrainosus presence: without status migrainosus Intractability: not intractable Migraine with aura and without status migrainosus, not intractable G43.109 Status migrainosus presence: without status migrainosus Intractability: not intractable
== END 2024-08-31 08:24 | disposition home or self-care (01) ==
LOC: HO.HSM 08:03
PROVIDERS: PCP Family Medicine; Referring Provider Family Medicine; Visit Provider Psychiatry & Neurology Neurology
DX: G43.009 Migraine without aura, not intractable, without status migrainosus (principal); G43.109 Migraine with aura, not intractable, without status migrainosus
CPT/HCPCS: 99214